=== PATIENT | male | born 1960 | race Caucasian/White ===

== ENCOUNTER 2019-11-25 07:53 | Emergency (ER) | payer BC ==
[2019-11-25] MEDS ORDERED: KETOROLAC 60 MG/2 ML VIAL IVP STA (08:05)
[2019-11-25] MEDS ORDERED: HYDROmorphone 1 MG/ML 1 ML SYRINGE IVP STA (08:05)
--- NOTE | 2019-11-25 08:07 | ED ---
General Adult HPI - General Chief complaint: Shortness of Breath Stated complaint: SOB, [facility] Time Seen by Provider: 11/25/19 07:55 Source: patient, RN notes reviewed, old records reviewed Mode of arrival: ambulatory Limitations: no limitations - History of Present Illness Initial comments: This is a 59-year-old male with a past medical history significant for COPD. Patient also states he just got out of the hospital on Thursday with double pneumonia. Patient states she is in the hospital about 10 days. Patient states he comes in today because he is having hard time breathing because of the pain in the right side of his chest. Patient states on the right lateral aspect of his thorax. Patient states it's really not shortness of breath it's painful breathing. Patient denies any anterior chest pain. Patient states is very sharp in nature and pleuritic in nature. Patient states he has a cough but not causing any sputum production. Patient denies any fever chills. Patient denies any abdominal pain patient denies nausea vomiting diarrhea per patient denies headache patient denies numbness weakness per patient denies lightheadedness or dizziness. Patient states she does have swelling the legs since he was in the hospital on IV fluids for so long but he is on Lasix for that. - Related Data Home Medications Medication Instructions Recorded Confirmed Atorvastatin [Lipitor] 20 mg PO HS 07/09/16 11/25/19 Omeprazole 20 mg PO QAM 11/11/19 11/25/19 Budesonide-Formot 160-4.5 Mcg 2 puff INHALATION RT-BID 11/25/19 11/25/19 [Symbicort 160-4.5 Mcg Inhaler] Furosemide [Lasix] 40 mg PO DAILY 11/25/19 11/25/19 Previous Rx's Medication Instructions Recorded Albuterol Inhaler [Ventolin Hfa 1 - 2 puff INHALATION RT-Q6H PRN 11/21/19 Inhaler] #1 inhaler Nystatin 5 ml PO QID #150 ml 11/21/19 predniSONE 30 mg PO DAILY #7 tab 11/21/19 Ketorolac [Toradol] 10 mg PO Q6HR #15 tab 11/25/19 Allergies Allergy/AdvReac Type Severity Reaction Status Date / Time No Known Allergies Allergy Verified 11/25/19 08:45 Review of Systems ROS Statement: Those systems with pertinent positive or pertinent negative responses have been documented in the HPI. ROS Other: All systems not noted in ROS Statement are negative. Past Medical History Past Medical History: COPD, Hyperlipidemia, Pneumonia History of Any Multi-Drug Resistant Organisms: None Reported Past Surgical History: Orthopedic Surgery Additional Past Surgical History / Comment(s): arthroscopic knee surgery, rt hand Past Anesthesia/Blood Transfusion Reactions: No Reported Reaction Past Psychological History: No Psychological Hx Reported Smoking Status: Former smoker Past Alcohol Use History: None Reported Past Drug Use History: None Reported - Past Family History Father Family Medical History: Diabetes Mellitus Mother Family Medical History: No Reported History Family Family Medical History: No Reported History General Exam - General Exam Comments Initial Comments: GENERAL: Patient is well-developed and well-nourished. Patient is nontoxic and well- hydrated and is in mild distress. ENT: Neck is soft and supple. No significant lymphadenopathy is noted. Oropharynx is clear. Moist mucous membranes. Neck has full range of motion without eliciting any pain. EYES: The sclera were anicteric and conjunctiva were pink and moist. Extraocular movements were intact and pupils were equal round and reactive to light. Eyelids were unremarkable. PULMONARY: Unlabored respirations. Good breath sounds bilaterally. No audible rales rhonchi or wheezing was noted. CARDIOVASCULAR: There is a regular rate and rhythm without any murmurs gallops or rubs. Patient has splinting on the right side when he takes a deep breath. ABDOMEN: Soft and nontender with normal bowel sounds. SKIN: Skin is clear with no lesions or rashes and otherwise unremarkable. NEUROLOGIC: Patient is alert and oriented x3. Cranial nerves II through XII are grossly intact. Motor and sensory are also intact. Normal speech, volume and content. Symmetrical smile. MUSCULOSKELETAL: Normal extremities with adequate strength and full range of motion. 1+ edema bilateral ankles. LYMPHATICS: No significant lymphadenopathy is noted PSYCHIATRIC: Normal psychiatric evaluation. Normal interpersonal interactions appears functionally intact in deals appropriately with others. No signs of depression. Limitations: no limitations Course Vital Signs 11/25/19 11/25/19 11/25/19 07:56 08:24 08:30 Temperature 97.8 F Pulse Rate 82 72 69 Respiratory 20 18 16 Rate Blood Pressure 107/70 118/72 111/70 O2 Sat by Pulse 98 97 96 Oximetry 11/25/19 09:00 Temperature Pulse Rate 59 L Respiratory Rate Blood Pressure 111/70 O2 Sat by Pulse 95 Oximetry Medical Decision Making - Medical Decision Making EKG shows sinus rhythm at 71 bpm RI interval 206 dresses 88 QT interval 380 QTC is 421 per patient's EKG shows no ST segment elevation or depression. Chest x-ray shows resolving pneumonia. Patient had elevated d-dimer so I CAT scan the patient's chest there is no pulmonary embolism noted patient did have a couple of nodules in the right upper lobe which could be consistent with resolving pneumonia patient knows to follow up on these results. After the Toradol and Dilaudid were given patient was feeling considerably better and was comfortable going home per patient states at no time was he short of breath or did he have a fever and he states he only has an occasional dry cough. - Lab Data Result diagrams: 11/25/19 08:20 11/25/19 08:20 Lab Results 11/25/19 11/25/19 11/25/19 Range/Units 08:20 08:20 08:20 WBC (3.8-10.6) k/uL RBC (4.30-5.90) m/uL Hgb (13.0-17.5) gm/dL Hct (39.0-53.0) % MCV (80.0-100.0) fL MCH (25.0-35.0) pg MCHC (31.0-37.0) g/dL RDW (11.5-15.5) % Plt Count (150-450) k/uL Neutrophils % % Lymphocytes % % Monocytes % % Eosinophils % % Basophils % % Neutrophils # (1.3-7.7) k/uL Lymphocytes # (1.0-4.8) k/uL Monocytes # (0-1.0) k/uL Eosinophils # (0-0.7) k/uL Basophils # (0-0.2) k/uL Macrocytosis PT 9.4 (9.0-12.0) sec INR 0.9 (<1.2) APTT 20.9 L (22.0-30.0) sec D-Dimer 0.70 H (<0.60) mg/L FEU Sodium 137 (137-145) mmol/L Potassium 4.1 (3.5-5.1) mmol/L Chloride 98 (98-107) mmol/L Carbon Dioxide 32 H (22-30) mmol/L Anion Gap 7 mmol/L BUN 23 H (9-20) mg/dL Creatinine 0.68 (0.66-1.25) mg/dL Est GFR (CKD-EPI)AfAm >90 (>60 ml/min/1.73 sqM) Est GFR (CKD-EPI)NonAf >90 (>60 ml/min/1.73 sqM) Glucose 85 (74-99) mg/dL Plasma Lactic Acid Davey (0.7-2.0) mmol/L Calcium 9.5 (8.4-10.2) mg/dL Magnesium 2.0 (1.6-2.3) mg/dL Total Bilirubin 0.9 (0.2-1.3) mg/dL AST 38 (17-59) U/L ALT 130 H (4-49) U/L Alkaline Phosphatase 156 H (38-126) U/L Troponin I (0.000-0.034) ng/mL NT-Pro-B Natriuret Pep 224 pg/mL Total Protein 6.7 (6.3-8.2) g/dL Albumin 3.7 (3.5-5.0) g/dL 11/25/19 11/25/19 11/25/19 Range/Units 08:20 08:20 08:20 WBC 12.4 H (3.8-10.6) k/uL RBC 4.33 (4.30-5.90) m/uL Hgb 13.9 (13.0-17.5) gm/dL Hct 43.0 (39.0-53.0) % MCV 99.4 (80.0-100.0) fL MCH 32.2 (25.0-35.0) pg MCHC 32.4 (31.0-37.0) g/dL RDW 14.4 (11.5-15.5) % Plt Count 338 (150-450) k/uL Neutrophils % 80 % Lymphocytes % 8 % Monocytes % 6 % Eosinophils % 1 % Basophils % 3 % Neutrophils # 9.9 H (1.3-7.7) k/uL Lymphocytes # 1.0 (1.0-4.8) k/uL Monocytes # 0.7 (0-1.0) k/uL Eosinophils # 0.1 (0-0.7) k/uL Basophils # 0.4 H (0-0.2) k/uL Macrocytosis Slight PT (9.0-12.0) sec INR (<1.2) APTT (22.0-30.0) sec D-Dimer (<0.60) mg/L FEU Sodium (137-145) mmol/L Potassium (3.5-5.1) mmol/L Chloride (98-107) mmol/L Carbon Dioxide (22-30) mmol/L Anion Gap mmol/L BUN (9-20) mg/dL Creatinine (0.66-1.25) mg/dL Est GFR (CKD-EPI)AfAm (>60 ml/min/1.73 sqM) Est GFR (CKD-EPI)NonAf (>60 ml/min/1.73 sqM) Glucose (74-99) mg/dL Plasma Lactic Acid Davey 1.4 (0.7-2.0) mmol/L Calcium (8.4-10.2) mg/dL Magnesium (1.6-2.3) mg/dL Total Bilirubin (0.2-1.3) mg/dL AST (17-59) U/L ALT (4-49) U/L Alkaline Phosphatase (38-126) U/L Troponin I <0.012 (0.000-0.034) ng/mL NT-Pro-B Natriuret Pep pg/mL Total Protein (6.3-8.2) g/dL Albumin (3.5-5.0) g/dL Disposition Clinical Impression: Pleuritic chest pain Disposition: HOME SELF-CARE Condition: Good Instructions (If sedation given, give patient instructions): Pleurisy (ED) Prescriptions: Ketorolac [Toradol] 10 mg PO Q6HR #15 tab Is patient prescribed a controlled substance at d/c from ED?: No Referrals: Trace Espinoza DO [Primary Care Provider] - 1-2 days
[2019-11-25 08:37] LABS: Basophils # (A) 0.4 k/uL (0-0.2); Basophils % (A) 3 %; Eosinophils # (A) 0.1 k/uL (0-0.7); Eosinophils % (A) 1 %; HGB 13.9 gm/dL (13.0-17.5); Lymphocytes % (A) 8 %; MCH 32.2 pg (25.0-35.0); MCHC 32.4 g/dL (31.0-37.0); MCV 99.4 fL (80.0-100.0); Macrocytosis Slight; Mean Platelet Volume 8.5; Monocytes # (A) 0.7 k/uL (0-1.0); Monocytes % (A) 6 %; Neutrophils # (A) 9.9 k/uL (1.3-7.7); Neutrophils % (A) 80 %; Platelet Count 338 k/uL (150-450); RBC 4.33 m/uL (4.30-5.90); RDW 14.4 % (11.5-15.5); WBC 12.4 k/uL (3.8-10.6)
--- NOTE | 2019-11-25 08:41 | XR ---
EXAMINATION TYPE: XR chest 2V DATE OF EXAM: 11/25/2019 COMPARISON: 11/19/2019 INDICATION: Difficulty breathing TECHNIQUE: Frontal and lateral views of the chest are obtained. FINDINGS: The heart size is normal. The pulmonary vasculature is normal. There is a right upper lobe infiltrate. This has improved over the interval. Some subtle infiltrate a t the left base has likewise improved. Left costophrenic angle is better visualized currently.. IMPRESSION: 1. Improving right upper lobe and left lower lobe infiltrates. Residual remains in the right upper lo be.
[2019-11-25 08:44] LABS: ALT 130 U/L (4-49); AST 38 U/L (17-59); African American GFR (CKD) >90 (>60 ml/min/1.73 sqM); Albumin 3.7 g/dL (3.5-5.0); Alkaline Phosphatase 156 U/L (38-126); Anion Gap 7 mmol/L; Blood Urea Nitrogen 23 mg/dL (9-20); Calcium 9.5 mg/dL (8.4-10.2); Carbon Dioxide 32 mmol/L (22-30); Chloride 98 mmol/L (98-107); Glucose 85 mg/dL (74-99); Non-African American GFR(CKD) >90 (>60 ml/min/1.73 sqM); Potassium 4.1 mmol/L (3.5-5.1); Sodium 137 mmol/L (137-145); Total Bilirubin 0.9 mg/dL (0.2-1.3); Total Protein 6.7 g/dL (6.3-8.2)
[2019-11-25 08:55] LABS: INR 0.9 (<1.2); Partial Thromboplastin Time 20.9 sec (22.0-30.0); Prothrombin Time 9.4 sec (9.0-12.0)
[2019-11-25 08:57] LABS: D-Dimer 0.7 mg/L FEU (<0.60)
--- NOTE | 2019-11-25 09:58 | CT ---
CT CHEST FOR PULMONARY EMBOLISM. EXAMINATION TYPE: CT chest angio for PE DATE OF EXAM: 11/25/2019 INDICATION: Right sided chest pain with difficulty taking in a deep breath. CT DLP: 240.8 mGycm, Automated exposure control for dose reduction was used. CONTRAST: Patient injected with 100 mL of Isovue 370. COMPARISON: 11/12/2019 TECHNIQUE: CT of the chest is performed on a spiral scan at 2 mm thick sections. Study is performed with intravenous contrast timed for evaluation for pulmonary embolism. This will limit additional po rtions of the evaluation. 3-D MIP images reconstructed by the technologist are reviewed on the compu ter in the coronal and sagittal planes. FINDINGS: No persistent filling defects are evident to suggest an acute pulmonary embolism. No mediastinal or hilar adenopathy enlarged by CT criteria is evident. The ascending aorta diameter at the level of the main pulmonary artery is 0.8 cm. The main pulmonary artery diameter at the bifur cation is 2.3 cm. Very minimal pericardial effusion may be present. There is a 0.7 cm nodule in the posterior lateral right lung. Series 401 image 45. There is a 2.1 cm area of increased density within the posterior right upper lung field. Series 401 image 55. Small ri ght pleural fluid collection is present. Previous large consolidations have largely resolved. Emphyse matous changes are evident. There is a calcified granuloma in left upper lobe. Limited CT section through the upper abdomen are unremarkable. IMPRESSIONS: 1. No acute pulmonary embolism. 2. At least 2 soft tissue densities in the right upper lung field. Neoplasm is not excluded. Findings can be compatible with resolving pneumonia. Continued follow-up is recommended.
[2019-11-25 10:39] VITALS: BP 101/64; PULSE 62; RESP 18; TEMP 98.2
== END 2019-11-25 10:37 | disposition home or self-care (01) ==
LOC: EC 07:53
DX: R07.81 Pleurodynia (principal); M79.89 Other specified soft tissue disorders; R79.1 Abnormal coagulation profile; R91.8 Other nonspecific abnormal finding of lung field; E78.5 Hyperlipidemia, unspecified; J44.0 Chronic obstructive pulmonary disease with (acute) lower respiratory infection; J18.9 Pneumonia, unspecified organism; Z79.899 Other long term (current) drug therapy; Z87.891 Personal history of nicotine dependence
CPT/HCPCS: 99285; 96374; 96375; 36415; 93005; 85379; 83880; 80053; 83605; 83735; 84484; 85025; 85610; 85730; 87040; 71046; 71275; J1885; J1170; Q9967

== ENCOUNTER → 2019-12-09 | Outpatient (CLI) | payer BC ==
--- NOTE | 2019-12-11 08:44 | ECHOF ---
Referral Reason:I27.20 pul htn MEASUREMENTS -------- HEIGHT: 182.9 cm WEIGHT: 61.2 kg BP: IVSd: 0.9 cm (0.6 - 1.1) LVIDd: 4.8 cm (3.9 - 5.3) LVPWd: 0.9 cm (0.6 - 1.1) IVSs: 1.3 cm LVIDs: 2.6 cm LVPWs: 1.4 cm RVIDd: 2.7 cm (< 3.3) Ao Diam: 3.2 cm (2.0 - 3.7) LA Diam: 2.4 cm (2.7 - 3.8) AV Cusp: 1.8 cm (1.5 - 2.6) EPSS: 2.6 cm MV E Higinio: 0.67 m/s MV DecT: 336 ms MV A Higinio: 0.56 m/s MV E/A Ratio: 1.19 RAP: 5.00 mmHg RVSP: 22.41 mmHg MV EF SLOPE: 118.63 mm/s (70 - 150) MV EXCURSION: 12.84 mm (> 18.000) FINDINGS -------- Sinus rhythm. This was a technically adequate study. The left ventricular size is normal. Left ventricular wall thickness is normal. Overall left vent ricular systolic function is normal with, an EF between 55 - 60 %. The right ventricle is normal in size. The left atrial size is normal. The right atrial size is normal. The aortic valve is trileaflet and appears structurally normal. The mitral valve is normal. There is trace mitral regurgitation. The tricuspid valve appears structurally normal. Mild tricuspid regurgitation present. Right vent ricular systolic pressure is normal at < 35 mmHg. There is no pulmonic regurgitation present. The aortic root size is normal. Normal inferior vena cava with normal inspiratory collapse consistent with estimated right atrial pre ssure of 5 mmHg. There is no pericardial effusion. CONCLUSIONS -------- 1. Sinus rhythm. 2. This was a technically adequate study. 3. The left ventricular size is normal. 4. Left ventricular wall thickness is normal. 5. Overall left ventricular systolic function is normal with, an EF between 55 - 60 %. 6. The right ventricle is normal in size. 7. The left atrial size is normal. 8. The right atrial size is normal. 9. The aortic valve is trileaflet and appears structurally normal. 10. The mitral valve is normal. 11. There is trace mitral regurgitation. 12. The tricuspid valve appears structurally normal. 13. Mild tricuspid regurgitation present. 14. Right ventricular systolic pressure is normal at < 35 mmHg. 15. There is no pulmonic regurgitation present. 16. The aortic root size is normal. 17. Normal inferior vena cava with normal inspiratory collapse consistent with estimated right atrial pressure of 5 mmHg. 18. There is no pericardial effusion. BLADE BONER: Ayde Sherwood RDCS
== END | disposition home or self-care (01) ==
LOC: RADECHMAIN 16:11
PROVIDERS: ATTEND Internal Medicine
DX: I07.1 Rheumatic tricuspid insufficiency (principal)
CPT/HCPCS: 93306

== ENCOUNTER → 2021-07-08 | Outpatient (CLI) | payer BC ==
--- NOTE | 2021-07-09 09:36 | XR ---
EXAMINATION TYPE: XR hand complete RT DATE OF EXAM: 07/08/2021 CLINICAL HISTORY: pain TECHNIQUE: Frontal, lateral and oblique images of the right hand are obtained. COMPARISON: None. FINDINGS: There is no acute fracture/dislocation evident. The joint spaces appear within normal limi ts. The overlying soft tissue appears unremarkable. IMPRESSION: There is no acute fracture or dislocation ICD 10 NO FRACTURE, INITIAL EVALUATION
--- NOTE | 2021-07-09 09:37 | XR ---
EXAMINATION TYPE: XR wrist complete RT DATE OF EXAM: 07/08/2021 CLINICAL HISTORY: pain TECHNIQUE: Frontal, lateral and oblique images of the right wrist are obtained. COMPARISON: None. FINDINGS: There is no acute fracture/dislocation evident. Small bony protuberance laterally at the distal radiu s is of uncertain etiology. Correlate clinically. The joint spaces appear within normal limits. The overlying soft tissue appears unremarkable. IMPRESSION: There is no acute fracture or dislocation seen. ICD 10 NO FRACTURE, INITIAL EVALUATION
== END | disposition home or self-care (01) ==
LOC: RADXRYALE 16:50
PROVIDERS: ATTEND Family Medicine
DX: M79.644 Pain in right finger(s) (principal)

== ENCOUNTER 2023-04-21 16:19 | Observation (INO) | payer BC ==
[2023-04-21] MEDS ORDERED: ASPIRIN 81 MG PO STA (16:56)
[2023-04-21 17:04] LABS: Basophils % (A) 0 %; Eosinophils # (A) 0.4 k/uL (0-0.7); Eosinophils % (A) 5 %; HCT 42.2 % (39.0-53.0); HGB 14.5 gm/dL (13.0-17.5); Lymphocytes # (A) 1.6 k/uL (1.0-4.8); Lymphocytes % (A) 23 %; MCH 33.2 pg (25.0-35.0); MCHC 34.3 g/dL (31.0-37.0); MCV 96.9 fL (80.0-100.0); Mean Platelet Volume 7.6; Monocytes # (A) 0.6 k/uL (0-1.0); Monocytes % (A) 9 %; Neutrophils # (A) 4.2 k/uL (1.3-7.7); Neutrophils % (A) 60 %; Platelet Count 197 k/uL (150-450); RBC 4.36 m/uL (4.30-5.90); RDW 13.3 % (11.5-15.5); WBC 7.1 k/uL (3.8-10.6)
[2023-04-21 17:12] LABS: ALT 25 U/L (4-49); AST 25 U/L (17-59); African American GFR (CKD) >90 (>60 ml/min/1.73 sqM); Alkaline Phosphatase 62 U/L (38-126); Anion Gap 8 mmol/L; Blood Urea Nitrogen 19 mg/dL (9-20); Calcium 9.4 mg/dL (8.4-10.2); Carbon Dioxide 23 mmol/L (22-30); Chloride 105 mmol/L (98-107); Glucose 102 mg/dL (74-99); Non-African American GFR(CKD) >90 (>60 ml/min/1.73 sqM); Potassium 4.2 mmol/L (3.5-5.1); Sodium 136 mmol/L (137-145); Total Bilirubin 0.4 mg/dL (0.2-1.3)
[2023-04-21 17:22] LABS: Partial Thromboplastin Time 23.8 sec (22.0-30.0); Prothrombin Time 10.2 sec (9.0-12.0)
--- NOTE | 2023-04-21 17:44 | XR ---
EXAMINATION TYPE: XR chest 2V DATE OF EXAM: 04/21/2023 5:13 PM COMPARISON: Chest radiographs from 06/03/2022 TECHNIQUE: XR chest 2V Frontal and lateral views of the chest. CLINICAL INDICATION:Male, 62 years old with history of Chest Pain; FINDINGS: Lungs/Pleura: There is flattening of the diaphragm with increased lucency of the lungs. No evidence o f pneumothorax, pleural effusion or focal consolidation. Pulmonary vascularity: Unremarkable. Heart/mediastinum: Cardiomediastinal silhouette is unremarkable. Musculoskeletal: No acute osseous pathology. IMPRESSION: 1. No acute cardiopulmonary disease process. 2. COPD changes.
--- NOTE | 2023-04-21 17:47 | ED ---
General Adult HPI - General Chief complaint: Chest Pain Stated complaint: chest pain Time Seen by Provider: 04/21/23 16:32 Source: patient Mode of arrival: ambulatory - History of Present Illness Initial comments: 62-year-old male with past medical history significant for hyperlipidemia presents to the ED for chief complaint of chest pain. She states she was walking when he started to feel pain in the middle of his chest. Patient unable to qualify the type of pain he is having notes it affects the mid chest and it is currently a 2/10 in severity. Pain worse with movement and inspiration. Patient also notes for the past 2 weeks has had shortness of breath which has also been progressively worsening. No other complaints. Patient is a pack per day smoker for the past 48 years. Has history of DVT or PE. - Related Data Home Medications Medication Instructions Recorded Confirmed Omeprazole 20 mg PO QAM 11/11/19 06/03/22 Budesonide-Formot 160-4.5 Mcg 2 puff INHALATION RT-BID 11/25/19 06/03/22 [Symbicort 160-4.5 Mcg Inhaler] Atorvastatin [Lipitor] 5 mg PO HS 06/03/22 06/03/22 Levocetirizine Dihydrochloride 5 mg PO HS 06/03/22 06/03/22 [Xyzal] Previous Rx's Medication Instructions Recorded Albuterol Inhaler [Ventolin Hfa 1 - 2 puff INHALATION RT-Q6H PRN 11/21/19 Inhaler] #1 inhaler Albuterol Inhaler [Ventolin Hfa 1 - 2 puff INHALATION Q6HR PRN #2 06/03/22 Inhaler] each predniSONE [Deltasone] 40 mg PO DAILY #8 tab 06/03/22 Allergies Allergy/AdvReac Type Severity Reaction Status Date / Time No Known Allergies Allergy Verified 04/21/23 16:23 Review of Systems ROS Statement: Those systems with pertinent positive or pertinent negative responses have been documented in the HPI. ROS Other: All systems not noted in ROS Statement are negative. Past Medical History Past Medical History: COPD, Hyperlipidemia, Pneumonia History of Any Multi-Drug Resistant Organisms: None Reported Past Surgical History: Orthopedic Surgery Additional Past Surgical History / Comment(s): arthroscopic knee surgery, rt hand Past Anesthesia/Blood Transfusion Reactions: No Reported Reaction Past Psychological History: No Psychological Hx Reported Smoking Status: Current every day smoker Past Alcohol Use History: None Reported Past Drug Use History: None Reported - Past Family History Father Family Medical History: Diabetes Mellitus Mother Family Medical History: No Reported History Family Family Medical History: No Reported History General Exam Limitations: no limitations General appearance: alert, in no apparent distress Eye exam: Present: normal appearance Respiratory exam: Present: wheezes (Expiratory wheezing in bilateral lung castro) Cardiovascular Exam: Present: regular rate, normal rhythm GI/Abdominal exam: Present: soft Neurological exam: Present: alert, oriented X3 Skin exam: Present: warm, dry Course Vital Signs 04/21/23 16:23 Temperature 98.2 F Pulse Rate 80 Respiratory 18 Rate Blood Pressure 118/70 O2 Sat by Pulse 96 Oximetry Medical Decision Making - Medical Decision Making Was pt. sent in by a medical professional or institution (Dr. PA, PROTOTYPE FABRICATOR, urgent care, hospital, or half-way...) When possible be specific @ -No Did you speak to anyone other than the patient for history (EMS, parent, family, police, friend...)? What history was obtained from this source @ -No Did you review nursing and triage notes (agree or disagree)? Why? @ -I reviewed and agree with nursing and triage notes Were old charts reviewed (outside hosp., previous admission, EMS record, old EKG, old radiological studies, urgent care reports/EKG's, half-way records)? Report findings @ -No old charts were reviewed Differential Diagnosis (chest pain, altered mental status, abdominal pain women, abdominal pain men, vaginal bleeding, weakness, fever, dyspnea, syncope, headache, dizziness, GI bleed, back pain, seizure, CVA, palpatations, mental health, musculoskeletal)? @ -Differential Chest Pain: Stable Angina, Unstable Angina, STEMI, NSTEMI Aortic Dissection, Pneumothorax, Musculoskeletal, Esophageal Spasm GERD, Cholecystitis, Pancreatitis, Zoster, this is not meant to be an all-inclusive list. EKG interpreted by me (3pts min.). @ -As above X-rays interpreted by me (1pt min.). @ -Chest x-ray shows no acute process CT interpreted by me (1pt min.). @ -None done U/S interpreted by me (1pt. min.). @ -None done What testing was considered but not performed or refused? (CT, X-rays, U/S, labs)? Why? @ -None What meds were considered but not given or refused? Why? @ -None Did you discuss the management of the patient with other professionals (professionals i.e. , ALVA, PROTOTYPE FABRICATOR, lab, RT, psych nurse, social media job titles, shotgun shell loading machine operator, teacher, air antisubmarine officer, case planner)? Give summary @ -Spoke to Pb DIAGLE, who accepts admission to Dr. Benoit Was smoking cessation discussed for >3mins.? @ -Smoking cessation discussed with patient. Patient notes back daily smoker for the past 40 years. Patient notes in the past she has tried to quit cold turkey. States that he has an interest in quitting. States that he has never tried medication assisted treatment. Advised further follow-up with PCP possible be discussing use of bupropion or Chantix. Additionally advised pat ient quitting cold turkey is often unsuccessful and there are other nicotine alternatives he may try to assist with quitting. Was critical care preformed (if so, how long)? @ -No Were there social determinants of health that impacted care today? How? (Homelessness, low income, unemployed, alcoholism, drug addiction, transportation, low edu. Level, literacy, decrease access to med. care, skilled nursing, rehab)? @ -No Was there de-escalation of care discussed even if they declined (Discuss DNR or withdrawal of care, Hospice)? DNR status @ -No What co-morbidities impacted this encounter? (DM, HTN, Smoking, COPD, CAD, Cancer, CVA, ARF, Chemo, Hep., AIDS, mental health diagnosis, sleep apnea, morbid obesity)? @ -Hyperlipidemia, smoker Was patient admitted / discharged? Hospital course, mention meds given and route, prescriptions, significant lab abnormalities, going to OR and other pertinent info. @ -Admitted. Initial laboratory studies including troponin and d-dimer are negative. Imaging studies negative. Patient admitted to observation with consult to cardiology for chest pain rule out. Discussed plan of care with patient and family who are in agreement. Undiagnosed new problem with uncertain prognosis? @ -No Drug Therapy requiring intensive monitoring for toxicity (Heparin, Nitro, Insulin, Cardizem)? @ -No Were any procedures done? @ -No Diagnosis/symptom? @ -Chest pain, shortness of breath Acute, or Chronic, or Acute on Chronic? @ -Acute Uncomplicated (without systemic symptoms) or Complicated (systemic symptoms)? @ -Uncomplicated Side effects of treatment? @ -No Exacerbation, Progression, or Severe Exacerbation? @ -No Poses a threat to life or bodily function? How? (Chest pain, USA, PA, pneumonia, PE, COPD, DKA, ARF, appy, cholecystitis, CVA, Diverticulitis, Homicidal, Suicidal, threat to staff... and all critical care pts) @ -Yes, chest pain rule out ACS. - Lab Data Result diagrams: 04/21/23 16:30 04/21/23 16:30 Lab Results 04/21/23 04/21/23 04/21/23 Range/Units 16:30 16:30 16:30 WBC 7.1 (3.8-10.6) k/uL RBC 4.36 (4.30-5.90) m/uL Hgb 14.5 (13.0-17.5) gm/dL Hct 42.2 (39.0-53.0) % MCV 96.9 (80.0-100.0) fL MCH 33.2 (25.0-35.0) pg MCHC 34.3 (31.0-37.0) g/dL RDW 13.3 (11.5-15.5) % Plt Count 197 (150-450) k/uL MPV 7.6 Neutrophils % 60 % Lymphocytes % 23 % Monocytes % 9 % Eosinophils % 5 % Basophils % 0 % Neutrophils # 4.2 (1.3-7.7) k/uL Lymphocytes # 1.6 (1.0-4.8) k/uL Monocytes # 0.6 (0-1.0) k/uL Eosinophils # 0.4 (0-0.7) k/uL Basophils # 0.0 (0-0.2) k/uL PT 10.2 (9.0-12.0) sec INR 1.0 (<1.2) APTT 23.8 (22.0-30.0) sec D-Dimer (<0.60) mg/L FEU Sodium 136 L (137-145) mmol/L Potassium 4.2 (3.5-5.1) mmol/L Chloride 105 (98-107) mmol/L Carbon Dioxide 23 (22-30) mmol/L Anion Gap 8 mmol/L BUN 19 (9-20) mg/dL Creatinine 0.81 (0.66-1.25) mg/dL Est GFR (CKD-EPI)AfAm >90 (>60 ml/min/1.73 sqM) Est GFR (CKD-EPI)NonAf >90 (>60 ml/min/1.73 sqM) Glucose 102 H (74-99) mg/dL Calcium 9.4 (8.4-10.2) mg/dL Magnesium 2.0 (1.6-2.3) mg/dL Total Bilirubin 0.4 (0.2-1.3) mg/dL AST 25 (17-59) U/L ALT 25 (4-49) U/L Alkaline Phosphatase 62 (38-126) U/L Troponin I (0.000-0.034) ng/mL Total Protein 7.0 (6.3-8.2) g/dL Albumin 4.0 (3.5-5.0) g/dL 04/21/23 04/21/23 Range/Units 16:30 17:04 WBC (3.8-10.6) k/uL RBC (4.30-5.90) m/uL Hgb (13.0-17.5) gm/dL Hct (39.0-53.0) % MCV (80.0-100.0) fL MCH (25.0-35.0) pg MCHC (31.0-37.0) g/dL RDW (11.5-15.5) % Plt Count (150-450) k/uL MPV Neutrophils % % Lymphocytes % % Monocytes % % Eosinophils % % Basophils % % Neutrophils # (1.3-7.7) k/uL Lymphocytes # (1.0-4.8) k/uL Monocytes # (0-1.0) k/uL Eosinophils # (0-0.7) k/uL Basophils # (0-0.2) k/uL PT (9.0-12.0) sec INR (<1.2) APTT (22.0-30.0) sec D-Dimer <0.17 (<0.60) mg/L FEU Sodium (137-145) mmol/L Potassium (3.5-5.1) mmol/L Chloride (98-107) mmol/L Carbon Dioxide (22-30) mmol/L Anion Gap mmol/L BUN (9-20) mg/dL Creatinine (0.66-1.25) mg/dL Est GFR (CKD-EPI)AfAm (>60 ml/min/1.73 sqM) Est GFR (CKD-EPI)NonAf (>60 ml/min/1.73 sqM) Glucose (74-99) mg/dL Calcium (8.4-10.2) mg/dL Magnesium (1.6-2.3) mg/dL Total Bilirubin (0.2-1.3) mg/dL AST (17-59) U/L ALT (4-49) U/L Alkaline Phosphatase (38-126) U/L Troponin I <0.012 (0.000-0.034) ng/mL Total Protein (6.3-8.2) g/dL Albumin (3.5-5.0) g/dL - EKG Data EKG Comments: EKG shows a sinus rhythm without acute ST or T-wave changes at 72 bpm. DE 122, QRS 101, QT/QTc 387/411. Disposition Clinical Impression: Chest pain Disposition: ADMITTED IP TO THIS HOSP Referrals: Laurita Monteiro DO [Primary Care Provider] - 1-2 days Time of Disposition: 17:47
[2023-04-21] MEDS ORDERED: ACETAMINOPHEN TAB 325 MG TAB PO PRN (18:04)
[2023-04-21] MEDS ORDERED: NALOXONE 0.4 MG/ML 1 ML VIAL IV PRN (18:04)
[2023-04-21] MEDS ORDERED: HYDROmorphone 1 MG/ML 1 ML SYRINGE IVP PRN (18:04)
[2023-04-21] MEDS ORDERED: HYDROmorphone 0.5 MG/0.5 ML SYRINGE IVP PRN (18:04)
[2023-04-21] MEDS: SODIUM CHLORIDE 0.9% 1,000 ML IV SCH (18:42)
[2023-04-22] MEDS: SODIUM CHLORIDE 0.9% 1,000 ML IV SCH ×2 (05:46→21:26)
[2023-04-22] MEDS ORDERED: SYMBICORT 160-4.5 MCG INHALER INHALATION PRN (08:33)
[2023-04-22] MEDS ORDERED: ALBUTEROL NEBULIZED 2.5 MG/3 ML INHALATION PRN (08:33)
[2023-04-22] MEDS ORDERED: PANTOPRAZOLE 40 MG TABLET PO SCH (09:00)
[2023-04-22] MEDS ORDERED: HEPARIN SODIUM 1,000 UN/ML (10ML VL) IV ONE (12:19)
[2023-04-22] MEDS ORDERED: HEPARIN SODIUM 1,000 UN/ML (10ML VL) IV PRN (12:19)
[2023-04-22] MEDS ORDERED: ALPRAZolam 0.25 MG TAB PO PRN (12:23)
[2023-04-22] MEDS ORDERED: ATORVASTATIN 80 MG TAB PO STA (12:23)
[2023-04-22] MEDS ORDERED: NITROGLYCERIN SL TABS 0.4 MG TAB SUBLINGUAL PRN (12:23)
[2023-04-22] MEDS ORDERED: ASPIRIN 325 MG TAB PO STA (12:23)
[2023-04-22] MEDS ORDERED: ALPRAZolam 0.5 MG TAB PO PRN (12:23)
--- NOTE | 2023-04-22 12:25 | P.CRDCN ---
History of Present Illness Consult date: 04/22/23 Consult reason: chest pain History of present illness: History of present illness: This is a 62-year-old male with no previous cardiac history, no previous cardiac workup except for a possible stress test many years ago. He has a past medical history of hyperlipidemia, COPD, gastroesophageal reflux disease, tobacco use and dependence. Patient gives history that he has had difficulty in breathing for the past couple weeks and dyspnea on exertion. Yesterday he developed chest pain in the morning while he was at work. 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 He denies having any chest pain at this time is just not sure why it has resolved. He does have a chronic cough, no fever or chills. Patient is seen today in the emergency center waiting for a bed on the observation unit. EKG sinus rhythm with no acute ST changes Chest x-ray: No acute findings, COPD CBC CMP unremarkable. Troponin negative 3. D-dimer less than 0.17. Home cardiac medications: Atorvastatin 5 mg at bedtime Echocardiogram 2020 revealed EF 55-60%, trace mitral regurgitation, mild tricuspid regurgitation, RVSP less than 35. Review Of Systems: At the time of my evaluation: Constitutional: No fever, no chills. No weakness, fatigue or lethargy. EENT: No headache. No dizziness. Lungs: No shortness of breath, cough, no sputum production. No wheezing. Dyspnea on exertion Cardiovascular: No chest pain, no lower extremity edema. No palpitations. No paroxysmal nocturnal dyspnea. No orthopnea. No lightheadedness or dizziness. No syncopal episodes. Abdominal: No abdominal pain. No nausea, vomiting. No diarrhea. No consti pation. No bloody or tarry stools. Genitourinary: No dysuria.. No urinary retention. Musculoskeletal: No myalgias. No muscle weakness, no frequent falls. No back pain. No neck pain. Integumentary: No wounds. No rash. No unusual bruising. Neurologic: No aphasia. No facial droop. No change in mentation. No head injury. No headache. Physical examination: Gen: This is a year old male resting on the ER stretch and appears to be comfortable and in no acute distress. VS: reviewed. Heart rate in the 60s, blood pressure 112/70. HEENT: Head is atraumatic, normocephalic. Pupils equal, round. Sclerae is anicteric. NECK: Supple. No JVD. LUNGS: Few scattered expiratory wheezes. No intercostal retractions. HEART: Regular rate and rhythm. No murmur. ABDOMEN: Soft EXTREMITIES: No pedal edema. NEUROLOGICAL: Patient is awake, alert and oriented x3. Assessment: Chest pain, possible unstable angina Dyspnea on exertion Hyperlipidemia COPD Gastroesophageal reflux disease Tobacco use and dependence 1 pack per day since 14 years of age Plan: Resume Lipitor increased dose Start patient on aspirin 81 mg daily, Lopressor 12.5 mg daily Start patient on heparin drip Obtain 2-D echocardiogram and Doppler study to assess cardiac structure and function Schedule patient for cardiac catheterization tomorrow Further recommendations to follow based upon clinical course Thank you kindly for this consultation. Nurse practitioner note has been reviewed, I agree with documented findings and plan of care. Patient was seen and examined. Past Medical History Past Medical History: COPD, Hyperlipidemia, Pneumonia History of Any Multi-Drug Resistant Organisms: None Reported Past Surgical History: Orthopedic Surgery Additional Past Surgical History / Comment(s): arthroscopic knee surgery, rt hand Past Anesthesia/Blood Transfusion Reactions: No Reported Reaction Past Psychological History: No Psychological Hx Reported Smoking Status: Current every day smoker Past Alcohol Use History: None Reported Past Drug Use History: None Reported - Past Family History Father Family Medical History: Diabetes Mellitus Mother Family Medical History: No Reported History Family Family Medical History: No Reported History Medications and Allergies Home Medications Medication Instructions Recorded Confirmed Type Omeprazole 20 mg PO DAILY 11/11/19 04/21/23 History Albuterol Inhaler [Ventolin Hfa 1 - 2 puff INHALATION RT-Q6H PRN 11/21/19 04/21/23 Rx Inhaler] #1 inhaler Budesonide-Formot 160-4.5 Mcg 2 puff INHALATION RT-BID PRN 11/25/19 04/21/23 History [Symbicort 160-4.5 Mcg Inhaler] Atorvastatin [Lipitor] 5 mg PO HS 06/03/22 04/21/23 History Allergies Allergy/AdvReac Type Severity Reaction Status Date / Time No Known Allergies Allergy Verified 04/21/23 16:23 Physical Exam Vitals: Vital Signs Temp Pulse Resp BP Pulse Ox 04/22/23 05:39 97.6 F 56 L 16 112/70 95 04/22/23 02:06 55 L 04/22/23 00:06 97.2 F L 90 18 113/61 97 04/21/23 22:10 98.1 F 59 L 18 108/59 98 04/21/23 18:43 58 L 18 119/67 95 04/21/23 16:23 98.2 F 80 18 118/70 96 Intake and Output 04/21/23 04/22/23 04/22/23 22:59 06:59 14:59 Other: Weight 61.235 kg Results 04/21/23 16:30 04/21/23 16:30 Cardiac Enzymes 04/21/23 04/21/23 04/21/23 Range/Units 16:30 16:30 20:45 AST 25 (17-59) U/L Troponin I <0.012 <0.012 (0.000-0.034) ng/mL 04/22/23 Range/Units 00:24 AST (17-59) U/L Troponin I <0.012 (0.000-0.034) ng/mL Coagulation 04/21/23 Range/Units 16:30 PT 10.2 (9.0-12.0) sec APTT 23.8 (22.0-30.0) sec CBC 04/21/23 Range/Units 16:30 WBC 7.1 (3.8-10.6) k/uL RBC 4.36 (4.30-5.90) m/uL Hgb 14.5 (13.0-17.5) gm/dL Hct 42.2 (39.0-53.0) % Plt Count 197 (150-450) k/uL Comprehensive Metabolic Panel 04/21/23 Range/Units 16:30 Sodium 136 L (137-145) mmol/L Potassium 4.2 (3.5-5.1) mmol/L Chloride 105 (98-107) mmol/L Carbon Dioxide 23 (22-30) mmol/L BUN 19 (9-20) mg/dL Creatinine 0.81 (0.66-1.25) mg/dL Glucose 102 H (74-99) mg/dL Calcium 9.4 (8.4-10.2) mg/dL AST 25 (17-59) U/L ALT 25 (4-49) U/L Alkaline Phosphatase 62 (38-126) U/L Total Protein 7.0 (6.3-8.2) g/dL Albumin 4.0 (3.5-5.0) g/dL Current Medications Generic Name Dose Route Start Last Admin Trade Name Freq PRN Reason Stop Dose Admin Acetaminophen 650 mg 04/21/23 18:04 Acetaminophen Tab 325 Mg Tab PO Q6HR PRN Mild Pain or Fever > 100.5 Albuterol Sulfate 2.5 mg 04/22/23 08:33 Albuterol Nebulized 2.5 Mg/3 Ml INHALATION RT-Q6H PRN Shortness Of Breath Atorvastatin Calcium 5 mg 04/22/23 21:00 Atorvastatin 10 Mg Tab PO HS SANDRA Budesonide/Formoterol Fumarate 2 puff 04/22/23 08:33 Symbicort 160-4.5 Mcg Inhaler INHALATION RT-BID PRN Shortness Of Breath Hydromorphone HCl 0.5 mg 04/21/23 18:04 Hydromorphone 0.5 Mg/0.5 Ml Syringe IVP Q3HR PRN Moderate Pain (Scale 4 to 6) Hydromorphone HCl 1 mg 04/21/23 18:04 Hydromorphone 1 Mg/Ml 1 Ml Syringe IVP Q3HR PRN Severe Pain (Scale 7 to 10) Sodium Chloride 1,000 mls @ 75 mls/hr 04/21/23 18:15 04/22/23 05:46 Saline 0.9% IV 75 mls/hr .[id number] SANDRA Administration Naloxone HCl 0.2 mg 04/21/23 18:04 Naloxone 0.4 Mg/Ml 1 Ml Vial IV Q2M PRN Opioid Reversal Pantoprazole Sodium 40 mg 04/22/23 09:00 Pantoprazole 40 Mg Tablet PO [id number] SANDRA Intake and Output 04/21/23 04/22/23 04/22/23 22:59 06:59 14:59 Other: Weight 61.235 kg 04/21/23 16:30 04/21/23 16:30
[2023-04-22] MEDS ORDERED: ASPIRIN 325 MG TAB PO ONE (12:30)
[2023-04-22] MEDS ORDERED: TEMAZEPAM 15 MG CAP PO PRN (12:41)
[2023-04-22] MEDS: HEPARIN SOD,PORK IN 0.45% NACL 25,000 UNIT in 0.45% NACL 1 250ML.BAG IV SCH (12:57)
[2023-04-22] MEDS: METOPROLOL TARTRATE 12.5 MG TAB PO SCH (12:58)
--- NOTE | 2023-04-22 13:42 | HP ---
HISTORY AND PHYSICAL CHIEF COMPLAINT: Chest pain and shortness of breath. HISTORY OF PRESENT ILLNESS: This is a 62-year-old gentleman with a past history of COPD and hyperlipidemia, who was complaining of chest discomfort which was felt in the anterior part of the chest and shortness of breath. The patient came to [facility]. The troponins are negative at this time. 2D echo with Doppler was suggested by Cardiology and possible cardiac catheterization. There is no history of any fever, rigor, or chills. PAST MEDICAL HISTORY: Reviewed includes COPD and hyperlipidemia. Rest of the chart and rest of the history are also reviewed. HOME MEDICATIONS: Reviewed, omeprazole. Doses and rest of the medications are reviewed. ALLERGIES: None. FAMILY HISTORY: History of diabetes mellitus. SOCIAL HISTORY: Continued smoking. REVIEW OF SYSTEMS: Fourteen-point review is negative except as mentioned earlier. PHYSICAL EXAMINATION: VITAL SIGNS: Pulse is 62, blood pressure 112/70, respirations 16. HEENT: Conjunctivae are normal. NECK: No jugular venous distention. CARDIOVASCULAR: S1 and S2 muffled. RESPIRATORY: Breath sounds diminished at the bases. ABDOMEN: Soft and nontender. LEGS: No edema. No swelling. NERVOUS SYSTEM: Nonfocal. SKIN: No ulcers or rashes. JOINTS: No active deforming arthropathy. LABORATORY DATA: Reviewed. IMAGING STUDIES: Chest x-ray reviewed personally. ASSESSMENT: 1. Chest pain, possible unstable angina. Myocardial infarction ruled out. 2. Chronic obstructive pulmonary disease. 3. Hyperlipidemia. 4. Continued ongoing nicotine dependence. RECOMMENDATIONS: In this 62-year-old gentleman presented with multiple complex medical issues, we will monitor the patient closely. Continue the current medications. Continue with unstable angina protocol, antiplatelet agents, cardiac catheterization. Smoking cessation advised. Otherwise, prognosis is guarded. Further recommendations to follow. See orders for the details. MMODL / IJN: [id number] /
[2023-04-22] MEDS: NICOTINE 14MG/24HR PATCH TRANSDERM SCH (13:49)
[2023-04-22 14:36] VITALS: BMI 18.8
[2023-04-22] MEDS ORDERED: ATORVASTATIN 10 MG TAB PO SCH (21:00)
[2023-04-22] MEDS: ATORVASTATIN 40 MG TAB PO SCH (21:26)
[2023-04-22] MEDS: PANTOPRAZOLE 40 MG TABLET PO SCH (22:01)
[2023-04-23] MEDS ORDERED: ASPIRIN 325 MG TAB PO ONE (06:00)
[2023-04-23] MEDS ORDERED: ATORVASTATIN 80 MG TAB PO ONE (06:00)
[2023-04-23] MEDS: PANTOPRAZOLE 40 MG TABLET PO SCH (06:15)
[2023-04-23] MEDS: ASPIRIN 81 MG PO SCH (06:16)
[2023-04-23 06:27] LABS: Prothrombin Time 10.7 sec (9.0-12.0)
[2023-04-23] MEDS ORDERED: HEPARIN SODIUM,PORCINE 2,500 UNIT in SODIUM CHLORIDE 0.9% 250 ML IRRIGATION PRN (07:00)
[2023-04-23] MEDS ORDERED: HEPARIN SODIUM,PORCINE 10,000 UNIT in SODIUM CHLORIDE 0.9% 1,000 ML IRRIGATION PRN (07:00)
[2023-04-23] MEDS ORDERED: bisacodyL 10 MG SUPP RECTAL STA (08:13)
[2023-04-23 08:32] LABS: Basophils # (A) 0.06 X 10*3/uL (0.00-0.10); Basophils % (A) 0.8 %; Eosinophils # (A) 0.47 X 10*3/uL (0.04-0.35); Eosinophils % (A) 5.9 %; HCT 42.6 % (39.6-50.0); Lymphocytes # (A) 1.99 X 10*3/uL (0.90-5.00); MCH 31.2 pg (27.0-32.0); MCHC 32.9 d/dL (32.0-37.0); MCV 94.9 FL (80.0-97.0); Mean Platelet Volume 10.9 FL (9.5-12.2); Monocytes # (A) 0.85 X 10*3/uL (0.20-1.00); Monocytes % (A) 10.7 %; NRBC Per 100 WBC 0 X 10*3/uL (0.00-0.01); Neutrophils # (A) 4.55 X 10*3/uL (1.80-7.70); Neutrophils % (A) 57.1 %; Platelet Count 205 X 10*3/uL (140-440); RBC 4.49 X 10*6/uL (4.40-5.60); RDW 13.5 % (11.5-14.5); WBC 7.96 X 10*3/uL (4.50-10.00)
[2023-04-23 08:54] LABS: BUN/Creat Ratio 14.38 Ratio (12.00-20.00); Blood Urea Nitrogen 11.5 mg/dL (9.0-27.0); Calcium 8.9 mg/dL (8.7-10.3); Carbon Dioxide 21.6 mmol/L (21.6-31.8); Chloride 109 mmol/L (96-109); Chol/HDL Ratio 2.79 Ratio; Glucose 101 mg/dL (70-110); LDL Cholesterol,Calculated 91.8 mg/dL (0.0-131.0); Potassium 4.3 mmol/L (3.5-5.5); Sodium 141 mmol/L (135-145); VLDL Calculation 12.72 mg/dL (5.00-40.00)
[2023-04-23] MEDS: NICOTINE 14MG/24HR PATCH TRANSDERM SCH (13:06)
[2023-04-23] MEDS: METOPROLOL TARTRATE 12.5 MG TAB PO SCH (13:06)
--- NOTE | 2023-04-23 13:33 | P.PN ---
Subjective Progress Note Date: 04/23/23 History of present illness: This is a 62-year-old male with no previous cardiac history, no previous cardiac workup except for a possible stress test many years ago. He has a past medical history of hyperlipidemia, COPD, gastroesophageal reflux disease, tobacco use and dependence. Patient gives history that he has had difficulty in breathing for the past couple weeks and dyspnea on exertion. Yesterday he developed chest pain in the morning while he was at work. 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 He denies having any chest pain at this time is just not sure why it has resolved. He does have a chronic cough, no fever or chills. Patient is seen today in the emergency center waiting for a bed on the observation unit. EKG sinus rhythm with no acute ST changes Chest x-ray: No acute findings, COPD CBC CMP unremarkable. Troponin negative 3. D-dimer less than 0.17. Home cardiac medications: Atorvastatin 5 mg at bedtime Echocardiogram 2020 revealed EF 55-60%, trace mitral regurgitation, mild tricuspid regurgitation, RVSP less than 35. 04/23 Patient is seen in follow-up on the observation unit. Patient had a short bouts of chest pain during the night but none at this time. He was scheduled for cardiac catheterization today but due to power outage, cardiac catheterization is postponed until Tuesday 04/24. Heart rate has been in the 50s and 60s, blood pressure 113/79, pulse ox 95% on room air. Repeat blood work revealed CBC normal, BMP normal. Triglycerides 63, cholesterol 163, LDL 91, HDL 58. Echocardiogram report is pending. Physical examination: Gen: This is a year old male resting on the ER stretch and appears to be comfortable and in no acute distress. VS: reviewed. Heart rate in the 60s, blood pressure 112/70. HEENT: Head is atraumatic, normocephalic. Pupils equal, round. Sclerae is anicteric. NECK: Supple. No JVD. LUNGS: Few scattered expiratory wheezes. No intercostal retractions. HEART: Regular rate and rhythm. No murmur. ABDOMEN: Soft EXTREMITIES: No pedal edema. NEUROLOGICAL: Patient is awake, alert and oriented x3. Assessment: Chest pain, possible unstable angina Dyspnea on exertion Hyperlipidemia COPD Gastroesophageal reflux disease Tobacco use and dependence 1 pack per day since 14 years of age Plan: Continue Lipitor increased dose Continue patient on aspirin 81 mg daily, Lopressor 12.5 mg daily Discontinue heparin drip Schedule patient for cardiac catheterization tomorrow Further recommendations to follow based upon clinical course Nurse practitioner note has been reviewed, I agree with documented findings and plan of care. Patient was seen and examined. Objective - Vital Signs Vital signs: Vital Signs Temp 97.6 F 04/23/23 02:22 Pulse 62 04/23/23 02:22 Resp 14 04/23/23 02:22 BP 106/64 04/23/23 02:22 Pulse Ox 97 04/23/23 02:22 FiO2 Intake & Output 04/22/23 04/23/23 04/23/23 18:59 06:59 18:59 Intake Total 129.692 Balance 129.692 Weight 61.235 kg Intake: Intake, IV Titration 129.692 Amount Heparin Sod,Pork in 0.45% 129.692 NaCl 25,000 unit In 0.45 % NaCl 1 250ml.bag @ 12 UNITS/KG/HR 7.348 mls/hr IV .[facility] Rx#: [id number] Other: # Voids 1 2 - Labs CBC & Chem 7: 04/23/23 05:53 04/23/23 05:53 Labs: Abnormal Lab Results - Last 24 Hours (Table) 04/22/23 04/23/23 Range/Units 18:24 05:53 APTT 48.1 H 39.0 H (22.0-30.0) sec
[2023-04-23] MEDS: SODIUM CHLORIDE 0.9% 1,000 ML IV SCH (16:21)
[2023-04-23] MEDS: HEPARIN SOD,PORK IN 0.45% NACL 25,000 UNIT in 0.45% NACL 1 250ML.BAG IV SCH (16:22)
--- NOTE | 2023-04-23 16:47 | CA ---
Transthoracic Echo Report Name: Shree Horton Age: 62 Gender: M : 1960 Exam Date: 04/23/2023 12:45 Exam Location: [facility] Ht (in): 71 Wt (lb): 135 Ordering Physician: Deyanira Angulo Attending/Referring Phys: [id number], Kev Margin Trimmer Claudia Live RDCS Procedure CPT: Indications: LVF Cardiac Hx: Technical Quality: Fair Contrast 1: Total Dose (mL): Contrast 2: Total Dose (mL): MEASUREMENTS (Male / Female) Normal Values 2D ECHO LV Diastolic Diameter PLAX 3.7 cm 4.2 - 5.9 / 3.9 - 5.3 cm LV Systolic Diameter PLAX 2.9 cm IVS Diastolic Thickness 0.8 cm 0.6 - 1.0 / 0.6 - 0.9 cm LVPW Diastolic Thickness 1.0 cm 0.6 - 1.0 / 0.6 - 0.9 cm LV Relative Wall Thickness 0.5 RV Internal Dim ED PLAX 3.5 cm LA Volume 56.1 cm??? 18 - 58 / 22 - 52 cm??? M-MODE Aortic Root Diameter MM 2.9 cm LA Systolic Diameter MM 3.3 cm LA Ao Ratio MM 1.1 AV Cusp Separation MM 2.1 cm DOPPLER AV Peak Velocity 119.6 cm/s AV Peak Gradient 5.7 mmHg AV Mean Velocity 79.6 cm/s AV Mean Gradient 2.9 mmHg AV Velocity Time Integral 28.5 cm LVOT Peak Velocity 103.2 cm/s LVOT Peak Gradient 4.3 mmHg LVOT Velocity Time Integral 20.8 cm MV Area PHT 2.4 cm??? Mitral E Point Velocity 57.7 cm/s Mitral A Point Velocity 42.9 cm/s Mitral E to A Ratio 1.3 MV Deceleration Time 313.8 ms TR Peak Velocity 281.8 cm/s TR Peak Gradient 31.8 mmHg Right Ventricular Systolic Press 36.8 mmHg FINDINGS Left Ventricle Normal Left ventricular size, wall thickness, systolic function with no obvious regional wall motion abnormalities. Normal Left ventricular diastolic filling pattern. Left ventricular ejection fraction is estimated at 55-60 %. Right Ventricle Normal right ventricular size and function. Mild pulmonary hypertension. Right Atrium Normal right atrial size. Left Atrium Mildly increased left atrial area. Mitral Valve Structurally normal mitral valve. Trace to mild mitral regurgitation. Mild mitral annular calcification. Aortic Valve No aortic valve stenosis or regurgitation. Tricuspid Valve Structurally normal tricuspid valve. Mild tricuspid regurgitation. Pulmonic Valve Structurally normal pulmonic valve. Pericardium No pericardial effusion. Aorta Normal size aortic root and proximal ascending aorta. CONCLUSIONS Normal LV function Previewed by: Teddy Carias MD Dr. Suresh Tumma MD (Electronically Signed) Final Date: 23 April 2023 16:46
--- NOTE | 2023-04-23 20:04 | P.PN ---
Subjective Progress Note Date: 04/23/23 This is a pleasant 62-year-old male who was recently admitted with chest pain being closely monitored with cardiology following patient. Patient was scheduled for cardiac catheterization today although currently no power in the [employer] and being postponed until possibly 04/24/2023. Patient is continued on telemetry monitoring and reports no chest pain at this time. Patient reports improvement in shortness of breath and underwent 2-D echo. Patient will continue on diet and be nothing by mouth at midnight for possible cardiac catheterization. Patient is afebrile and no reported nausea or vomiting. Review of systems: Constitutional: No reports of fatigue, fever, or chills Cardiovascular: No reports of chest pain or palpitations Respiratory: No reports of shortness of breath or cough GI: no reports of nausea, no reports of vomiting, no diarrhea : No reports of dysuria or retention Neurovascular: No reports of generalized weakness All medications have been reviewed PHYSICAL EXAMINATION: GENERAL: The patient is alert and oriented x4, thin built, well-developed, elderly-appearing HEENT: Pupils are round and equally reacting to light. EOMI. no scleral icterus. No conjunctival pallor. Normocephalic, atraumatic. No pharyngeal erythema. No thyromegaly. CARDIOVASCULAR: S1 and S2 muffled PULMONARY: diminished breath sounds bilaterally with no wheezing or rhonchi noted. ABDOMEN: soft. Nontender on exam. Thin. non-distended, normoactive bowel sounds. No palpable organomegaly. MUSCULOSKELETAL: No joint swelling or deformity. EXTREMITIES: No cyanosis, clubbing, or pedal edema. NEUROLOGICAL: Gross neurological examination did not reveal any focal deficits. SKIN: No rashes. Assessment: Chest pain, possible unstable angina, myocardial infarction ruled out Chronic obstructive pulmonary disease, not in exacerbation Hyperlipidemia Continued ongoing nicotine dependence GI prophylaxis DVT prophylaxis Full code Plan: Recommend to continue with current medications and cardiology following. Patient is continued on telemetry monitoring and was scheduled for cardiac catheterization although due to power issues lab running today. Patient to be scheduled for cardiac catheterization on 04/24/2023. Patient will continue diet and be nothing by mouth at midnight Encouraged increased activity as tolerated Will follow-up with cardiology after cardiac catheterization discuss treatment plan moving forward Possible discharge in the next 24-48 hours The impression and plan of care has been dictated by Marilyn Dillard, nurse practitioner as directed. Dr. Mingo MD I have performed a history and examination and MDM of this patient, discussed the same with the dictator, and agree with the dictator's assessment and plan as written ,documented as a scribe. Based on total visit time, I have performed more than 50% of the visit. Any additional findings or plans will be noted. Objective - Vital Signs Vital signs: Vital Signs Temp 98.1 F 04/23/23 07:00 Pulse 55 L 04/23/23 07:00 Resp 16 04/23/23 07:00 BP 113/79 04/23/23 07:00 Pulse Ox 95 04/23/23 07:00 FiO2 Intake & Output 04/22/23 04/23/23 04/23/23 18:59 06:59 18:59 Intake Total 129.692 Balance 129.692 Weight 61.235 kg Intake: Intake, IV Titration 129.692 Amount Heparin Sod,Pork in 0.45% 129.692 NaCl 25,000 unit In 0.45 % NaCl 1 250ml.bag @ 12 UNITS/KG/HR 7.348 mls/hr IV .Q24H [facility] Rx#: [id number] Other: # Voids 1 2 - Labs CBC & Chem 7: 04/23/23 05:53 04/23/23 05:53 Labs: Abnormal Lab Results - Last 24 Hours (Table) 04/22/23 04/23/23 04/23/23 Range/Units 18:24 05:53 05:53 Eosinophils # 0.47 H (0.04-0.35) X 10*3/uL APTT 48.1 H 39.0 H (22.0-30.0) sec
[2023-04-23] MEDS: ATORVASTATIN 40 MG TAB PO SCH (21:12)
[2023-04-24] MEDS: SODIUM CHLORIDE 0.9% 1,000 ML IV SCH (00:42)
[2023-04-24] MEDS: PANTOPRAZOLE 40 MG TABLET PO SCH (06:31)
[2023-04-24] MEDS ORDERED: VERAPAMIL 2.5 MG/ML 2 ML AMP ONE (07:06)
[2023-04-24] MEDS ORDERED: IV FLUID CONTINUATION 950 ML IV ONE (07:14)
[2023-04-24 07:16] VITALS: RESP 14; TEMP 97.9
[2023-04-24] MEDS ORDERED: fentaNYL (PF) 50 MCG/ML 2 ML AMP ONE (07:19)
[2023-04-24] MEDS ORDERED: HEPARIN SODIUM 1,000 UN/ML (10ML VL) ONE (07:23)
[2023-04-24] MEDS ORDERED: MIDAZOLAM 2 MG/2 ML VIAL IVP ONE (07:34)
[2023-04-24] MEDS: fentaNYL (PF) 50 MCG/ML 2 ML AMP IVP ONE ×2 (07:37→07:41)
[2023-04-24] MEDS ORDERED: LIDOCAINE 1% INJ 10MG/ML (5 ML VIAL-PF) SQ ONE (07:38)
[2023-04-24] MEDS ORDERED: LIDOCAINE 1% INJ 10MG/ML (20 ML MDV) ONE (07:44)
[2023-04-24] MEDS ORDERED: VERAPAMIL SYRINGE (5 MG/10 ML) INTRAARTER ONE (07:47)
[2023-04-24] MEDS ORDERED: IOPAMIDOL-370 100ML BTL INJ ONE (07:55)
[2023-04-24] MEDS: NICOTINE 14MG/24HR PATCH TRANSDERM SCH (08:38)
[2023-04-24] MEDS: METOPROLOL TARTRATE 12.5 MG TAB PO SCH (08:38)
[2023-04-24] MEDS: ASPIRIN 81 MG PO SCH (08:38)
--- NOTE | 2023-04-24 09:12 | CC ---
CARDIAC CATHETERIZATION REPORT INDICATIONS: Unstable angina. PROCEDURE NOTE: After obtaining informed consent, left heart catheterization and coronary angiogram were performed via the right femoral artery using standard Renee catheters. The patient tolerated the procedure well without any obvious immediate complications. Hemostasis was obtained using a TR band. The patient received verapamil and heparin per protocol. Right radial artery access was obtained using Seldinger technique, 6-Serbian sheath was placed. Catheters and wires were floated into the ascending aorta under fluoroscopic guidance. FINDINGS: 1. Hemodynamics: Left ventricular end-diastolic pressure is 10 to 12 mm. There is no significant gradient across the aortic valve. 2. Left ventriculogram: Left ventriculogram is not performed. 3. Angiographic Data: a.Right coronary artery is a large dominant vessel and is free of significant stenosis. b.Left main coronary artery is a normal-sized vessel and is free of disease, divides into left anterior descending coronary artery and circumflex coronary artery. LAD and its branches circumflex coronary artery and its branches are free of significant stenosis. CONCLUSIONS: 1. Normal coronary arteries. 2. Normal left ventricular end-diastolic pressure. PLAN: The patient's chest discomfort is noncardiac in origin and management is going to be in the form of risk factor modification. MMODL / IJN: [id number] /
--- NOTE | 2023-04-24 09:18 | PN ---
PROGRESS NOTE A 62-year-old gentleman, who is admitted to hospital with unstable angina. He is supposed to undergo cardiac catheterization today. W[place] had been ruled out. Echocardiogram showed normal LV function and wall motion. However, we could not perform a cardiac catheterization on him because of power outage and lack of availability of the liaison inspection laboratory assistant. The plan at this stage is to do this tomorrow. JORDAN / GAGAN: [id number] /
[2023-04-24 12:09] VITALS: BP 125/73; PULSE 54
--- NOTE | 2023-04-25 11:09 | P.DS ---
Providers Date of admission: 04/21/23 17:42 Expected date of discharge: 04/24/23 Attending physician: Marjorie Benoit Consults: 04/21/23 18:04 Consult Physician Urgent Consulting Provider: [facility] Consult Reason/Comments: Chest pain Do you want consulting provider notified?: Yes Primary care physician: Laurita Monteiro, DO Hospital Course: Final diagnosis Chest pain, possible unstable angina, myocardial infarction ruled out, cardiac catheterization clear with no intervention at this time Chronic obstructive pulmonary disease, not in exacerbation Hyperlipidemia Continued ongoing nicotine dependence GI prophylaxis DVT prophylaxis Full code Discharge disposition Patient is being discharged in a stable condition with guarded prognosis to home. Patient will follow-up with Dr. Monteiro in the outpatient setting upon discharge. Patient is to follow-up with cardiology outpatient as scheduled. Total time taken is greater than 35 minutes. Hospital course This is a 62-year-old male who was recently admitted with chest pain, possible unstable angina. Negative troponins and cardiology evaluated the patient recommending cardiac catheterization which was found to be clear requiring no surgical intervention at this time. Patient will continue on current medication regimen close outpatient follow-up. Lifestyle risk factor modifications discussed including smoking cessation. Patient has been cleared by cardiology for discharge today. Please refer to cardiology notes for further HPI. Currently no reports of chest pain, shortness of breath, or palpitations. Patient is afebrile. No reports of nausea or vomiting and patient is tolerating diet. Patient will be discharged home today. Physical exam: Gen: This is a 62-year-old male who is awake, alert and oriented 3, well- developed, thin built, elderly appearing HEENT: Head is atraumatic, normocephalic. Pupils equal, round. Sclerae is anicteric. NECK: Supple. No JVD. No lymphadenopathy. No thyromegaly. LUNGS: Clear to auscultation. No wheezes or rhonchi. No intercostal retractions. HEART: Regular rate and rhythm. No murmur. ABDOMEN: Soft. Bowel sounds are present. No masses. No tenderness. EXTREMITIES: No pedal edema. No calf tenderness. NEUROLOGICAL: Patient is awake, alert and oriented x3. Cranial nerves 2 through 12 are grossly intact. Please refer to medication reconciliation sheet for a list of medications. The impression and plan of care has been dictated by Marilyn Dillard, Nurse Practitioner as directed. Dr. Mingo MD I have performed a history and examination and MDM of this patient, discussed the same with the dictator, and agree with the dictator's assessment and plan as written ,documented as a scribe. Based on total visit time, I have performed more than 50% of the visit. Patient Condition at Discharge: Fair Plan - Discharge Summary New Discharge Prescriptions: New Nicotine 14Mg/24Hr Patch [Habitrol] 1 patch TRANSDERM DAILY #30 patch Acetaminophen Tab [Tylenol] 650 mg PO Q6HR PRN tab PRN Reason: Mild Pain Or Fever > 100.5 Continue Omeprazole 20 mg PO DAILY Albuterol Inhaler [Ventolin Hfa Inhaler] 1 - 2 puff INHALATION RT-Q6H PRN #1 inhaler PRN Reason: Shortness Of Breath Budesonide-Formot 160-4.5 Mcg [Symbicort 160-4.5 Mcg Inhaler] 2 puff INHALATION RT-BID PRN PRN Reason: Shortness Of Breath Atorvastatin [Lipitor] 5 mg PO HS Discharge Medication List Omeprazole 20 mg PO DAILY 11/11/19 [History] Albuterol Inhaler [Ventolin Hfa Inhaler] 1 - 2 puff INHALATION RT-Q6H PRN #1 inhaler 11/21/19 [Rx] Budesonide-Formot 160-4.5 Mcg [Symbicort 160-4.5 Mcg Inhaler] 2 puff INHALATION RT-BID PRN 11/25/19 [History] Atorvastatin [Lipitor] 5 mg PO HS 06/03/22 [History] Acetaminophen Tab [Tylenol] 650 mg PO Q6HR PRN tab 04/23/23 [Rx] Nicotine 14Mg/24Hr Patch [Habitrol] 1 patch TRANSDERM DAILY #30 patch 04/23/23 [Rx] Follow up Appointment(s)/Referral(s): Laurita Monteiro DO [Primary Care Provider] - 1-2 days Dale Castellanos MD [STAFF PHYSICIAN] - 05/01/23 9:00 am Patient Instructions/Handouts: *[facility] - After Heart Catheterization - Underwriting Analyst Instructions, Heart Catheterization (DC) Activity/Diet/Wound Care/Special Instructions: Heart catheterization completed 04/24/[address] Obi Castellanos Activity Limited until follow-up Follow-up with primary care provider on discharge Follow-up cardiology as discussed in one week Continue taking medications as prescribed Avoid tobacco use and exposure Discharge Disposition: HOME SELF-CARE
== END 2023-04-24 13:20 | disposition home or self-care (01) ==
LOC: EC 16:19 → 6NMEDSUR 17:42
PROVIDERS: ADMIT Internal Medicine; ATTEND Internal Medicine
DX: R07.89 Other chest pain (principal); E78.5 Hyperlipidemia, unspecified; J44.9 Chronic obstructive pulmonary disease, unspecified; F17.200 Nicotine dependence, unspecified, uncomplicated; I27.20 Pulmonary hypertension, unspecified; I08.1 Rheumatic disorders of both mitral and tricuspid valves; K21.9 Gastro-esophageal reflux disease without esophagitis; Z86.718 Personal history of other venous thrombosis and embolism; Z79.899 Other long term (current) drug therapy; Z79.51 Long term (current) use of inhaled steroids; Z83.3 Family history of diabetes mellitus
CPT/HCPCS: 96376 ×2; 96361 ×3; 96366 ×2; 96360; 96365; 99285; 36415; 93005; 93306; 85379; 80061; 80053; 80048; 83735; 84100; 84484 ×2; 85025 ×2; 85610 ×2; 85730 ×3; 71046; 93458; G0378 ×4; J2250; J2001; J3010; J1644 ×4; Q9967

== ENCOUNTER 2024-05-21 20:15 | Emergency (ER) | payer MEDICARE ==
[2024-05-21] MEDS ORDERED: predniSONE 20 MG TAB ONE ×2 (22:44→23:15)
[2024-05-21] MEDS ORDERED: SODIUM CHLORIDE 0.9% 500 ML BAG ONE (23:15)
[2024-05-21] MEDS ORDERED: ALBUTEROL NEBULIZED 2.5 MG/3 ML INHALATION ONE (23:15)
[2024-05-21] MEDS ORDERED: IPRATROPIUM 0.5 MG/2.5 ML NEBU INHALATION ONE ×2 (23:15→23:19)
--- NOTE | 2024-06-17 14:31 | XR ---
EXAMINATION TYPE: XR chest 2V DATE OF EXAM: 05/21/2024 COMPARISON: Chest radiographs from 04/21/2023 TECHNIQUE: XR chest 2V Frontal and lateral views of the chest. CLINICAL INDICATION:Male, 63 years old with history of SOB; FINDINGS: Lungs/Pleura: There is flattening of the diaphragm with increased lucency of the lungs. No evidence o f pneumothorax, pleural effusion or focal consolidation. Pulmonary vascularity: Unremarkable. Heart/mediastinum: Cardiomediastinal silhouette is unremarkable. Musculoskeletal: No acute osseous pathology. IMPRESSION: 1. No acute cardiopulmonary disease process. 2. COPD changes.
== END 2024-05-22 00:23 | disposition home or self-care (01) ==
LOC: EC 20:15
CPT/HCPCS: 71046; 93005; 94640; 99285